=== PATIENT | male | born 1990 | race Hispanic/Latino ===

== ENCOUNTER 2020-03-10 19:49 | Emergency (ER) | payer SELFPAY ==
[2020-03-10] MEDS ORDERED: Adacel (T-DAP) 0.5 ML SYRINGE ONE (20:00)
[2020-03-10] MEDS ORDERED: Morphine 4 MG/ML VIAL ONE ×2 (20:08→20:52)
[2020-03-10] MEDS ORDERED: CEFAZOLIN 1 GM VIAL ONE (20:09)
[2020-03-10] MEDS ORDERED: Sodium Chloride 0.9% 100 ML ONE ×3 (20:09→20:15)
[2020-03-10] MEDS ORDERED: Ondansetron PF 4 MG/2 ML Vial ONE (20:09)
[2020-03-10] MEDS ORDERED: Sodium Chloride 0.9% 1,000 ML ONE (20:09)
--- NOTE | 2020-03-10 20:11 | RAD ---
EXAM: XR Finger(s) Lt Min 2 View DATE: 03/10/2020 7:58 PM INDICATION: Left thumb trauma COMPARISON: None. FINDING: There is a partial traumatic amputation involving the left thumb through the left thumb pro ximal phalangeal head. There is a prominent soft tissue defect overlying the partial ray amputation. There is some residual bone from the left thumb distal phalanx remaining along the medial soft tissues of the left thumb. IMPRESSION:Traumatic partial ray amputation of the left thumb through the left thumb proximal phalang eal head.
[2020-03-10 20:36] LABS: #Basophils 0.1 thou/uL (0.0-0.2); #Eosinphils 0.1 thou/uL (0.0-0.7); #Lymphocytes 5.2 thou/uL (1.20-3.40); #Monocytes 0.9 thou/uL (0.11-0.59); #Neutrophils 6.9 thou/uL (1.40-6.50); %Eosinophils 0.9 % (0.0-10.0); %Lymphocytes 39.4 % (21.0-51.0); %Monocytes 6.6 % (0.0-10.0); %Neutrophils 52.2 % (42.0-75.0); Hemoglobin 14.9 g/dL (14.0-18.0); Mean Corpuscular HGB CONC 32.3 g/dL (32.0-36.0); Mean Corpuscular Hemoglobin 29.9 pg (27.0-31.0); Mean Corpuscular Volume 92.6 fL (78.0-98.0); Mean Platelet Volume 7.7 fL (7.4-10.4); Platelet Count 362 thou/uL (130-400); Red Blood Cell (RBC) Count 4.97 mill/uL (4.70-6.10); White Blood Cell (WBC) Count 13.2 thou/uL (4.8-10.8)
[2020-03-10] MEDS ORDERED: Ketorolac Tromethamine 30 MG/ML VIAL ONE (20:38)
[2020-03-10 20:43] LABS: Anion Gap 15 mmol/L (10-20); BUN (Urea Nitrogen) 15 mg/dL (8.9-20.6); Calc. Creatinine Clearance 0 mL/min (70-130); Calcium 8.3 mg/dL (7.8-10.44); Carbon Dioxide 19 mmol/L (22-29); Chloride 109 mmol/L (98-107); Estimated GFR-MDRD 63; Glucose 124 mg/dL (70-105); Sodium 140 mmol/L (136-145)
== END 2020-03-10 20:58 | disposition short-term general hospital (02) ==
LOC: NAV ERS 19:49
DX: S68.022A Partial traumatic metacarpophalangeal amputation of left thumb, initial encounter (principal); W27.0XXA Contact with workbench tool, initial encounter; Y99.0 Civilian activity done for income or pay
CPT/HCPCS: 80048; 85025; 90471; 90715; 96365; 96375; J0690; J1885; J2270; J2405; J3490; J7050